=== PATIENT | male | born 1940 | race Caucasian/White ===

== ENCOUNTER → 2016-07-17 | Outpatient (CLI) | payer MEDICARE ==
[2014-10-06 10:30] VITALS: BP 170/81
[~2016-07-17] MED LIST: ASCO500C PO; CARV25TA2 PO; CHOL20004 PO; CRESTOR20 MG PO; FERR159T3 PO; FURO40TA4 PO; GLIM2TAB2 PO; LOSA25TA4 PO; MAGN400C PO; NIAC500T4 PO; PNV1TABL4 PO; POTA20TA12 PO
[2016-07-17 10:14] LABS: CHOLESTEROL/HDL RATIO 5.3
== END | disposition home or self-care (01) ==
LOC: LAB 09:27
PROVIDERS: ATTEND Internal Medicine Cardiovascular Disease
DX: I10 Essential (primary) hypertension (principal); E78.2 Mixed hyperlipidemia; I25.83 Coronary atherosclerosis due to lipid rich plaque
CPT/HCPCS: 36415; 80061; 83036; 83695

== ENCOUNTER → 2016-09-06 | Outpatient (CLI) | payer MEDICARE ==
[2014-10-06 10:30] VITALS: BP 170/81
[2016-09-06 10:47] LABS: CALCIUM 9.2 mg/dL (8.5-10.1); CREATININE 1.8 mg/dL (0.7-1.3); GFR 36.8; MAGNESIUM 2.1 mg/dL (1.8-2.4); POTASSIUM 4.2 mmol/L (3.5-5.1)
== END | disposition home or self-care (01) ==
LOC: LAB 09:41
PROVIDERS: ATTEND Internal Medicine Cardiovascular Disease
DX: R10.9 Unspecified abdominal pain (principal); E78.5 Hyperlipidemia, unspecified; I10 Essential (primary) hypertension
CPT/HCPCS: 36415; 80048; 82465; 83735

== ENCOUNTER → 2016-10-22 | Outpatient (CLI) | payer MEDICARE ==
[2014-10-06 10:30] VITALS: BP 170/81
[2016-10-22 09:54] LABS: CALCIUM 8.8 mg/dL (8.5-10.1); CREATININE 1.8 mg/dL (0.7-1.3); GFR 36.8; MAGNESIUM 2.1 mg/dL (1.8-2.4); POTASSIUM 3.7 mmol/L (3.5-5.1)
== END | disposition home or self-care (01) ==
LOC: LAB 09:14
PROVIDERS: ATTEND Internal Medicine Cardiovascular Disease
DX: I10 Essential (primary) hypertension (principal); E11.9 Type 2 diabetes mellitus without complications; R60.9 Edema, unspecified
CPT/HCPCS: 36415; 80048; 83036; 83735

== ENCOUNTER → 2017-01-01 | Outpatient (CLI) | payer MEDICARE ==
[2014-10-06 10:30] VITALS: BP 170/81
[~2017-01-01] MED LIST changes: -CHOL20004 PO; +CHOL200074 PO
[2017-01-01 10:14] LABS: % SAT IRON 35 % (15-34); IRON,SERUM 105 ug/dL (65-175)
[2017-01-01 10:24] LABS: MAGNESIUM 2.2 mg/dL (1.8-2.4); POTASSIUM 3.5 mmol/L (3.5-5.1)
== END | disposition home or self-care (01) ==
LOC: LAB 09:14
PROVIDERS: ATTEND Internal Medicine Cardiovascular Disease
DX: E11.9 Type 2 diabetes mellitus without complications (principal); I10 Essential (primary) hypertension; R60.0 Localized edema
CPT/HCPCS: 36415; 82728; 83540; 83550; 83735; 84132; 85045

== ENCOUNTER → 2017-08-21 | Outpatient (CLI) | payer MEDICARE ==
[2017-08-21 16:35] LABS: INFLUENZA A PATIENT NEGATIVE (NEGATIVE); INFLUENZA B PATIENT NEGATIVE (NEGATIVE); OBC FLU VALID
[2017-08-21 16:36] LABS: NEGATIVE OBC STREP NEG; POSITIVE OBC STREP POS
== END | disposition home or self-care (01) ==
LOC: LAB 15:20
DX: N39.0 Urinary tract infection, site not specified (principal)
CPT/HCPCS: 87070; 87186; 87804; 87804-59; 87880